=== PATIENT | female | born 1975 | race Caucasian/White ===

== ENCOUNTER 2021-01-20 16:49 | Emergency (ER) | payer BC, OTHER ==
[2021-01-20 16:53] VITALS: BP 133/69; PULSE 65; TEMP 98.4; BMI 24.2
[2021-01-20] MEDS ORDERED: IBUPROFEN 400 MG TABLET (FP) PO ONE ×2 (17:33→17:39)
== END 2021-01-20 17:52 | disposition home or self-care (01) ==
LOC: JERFT 16:49
DX: S93.401A Sprain of unspecified ligament of right ankle, initial encounter (principal)
CPT/HCPCS: 73610-TC-RT-FY; 99284-25